=== PATIENT | female | born 1955 | race African-American/Black ===

== ENCOUNTER 2019-04-11 11:31 | Emergency (ER) | payer MEDICAID, OTHER ==
[2019-04-11] MEDS: CYCLOBENZAPRINE 10 MG TAB PO (12:34)
[2019-04-11] MEDS: IBUPROFEN 800 MG TAB PO (12:34)
== END 2019-04-11 12:44 | disposition home or self-care (01) ==
LOC: FTE 12:44
DX: M54.42 Lumbago with sciatica, left side (principal)
CPT/HCPCS: 99283; Z7502